=== PATIENT | male | born 1975 | race Caucasian/White ===

== ENCOUNTER 2020-06-11 05:55 | Day surgery (SDC) | payer BC, OTHER ==
[~2020-06-11] VITALS: Ht 180.3 cm; Wt 112.1 kg
[~2020-06-11 05:55] MED LIST: DULA1.5P SC; INSU100C SQ-INSULIN; INSU300I3 SC; METF1000 PO
[2020-06-11 06:38] VITALS: BP 130/90
[2020-06-11] MEDS ORDERED: LACTATED RINGERS 1,000 ML IV SCH (07:00)
[2020-06-11] MEDS ORDERED: CHLORHEXIDINE 15 ML UDC MM ONE (07:00)
[2020-06-11] MEDS ORDERED: LIDOCAINE-MPF 2% ,5ML ONE (07:30)
[2020-06-11] MEDS ORDERED: ROCURONIUM 10MG/ML,5ML ONE (07:30)
[2020-06-11] MEDS ORDERED: FENTANYL PF 250 MCG/5ML ONE (07:30)
[2020-06-11] MEDS ORDERED: MIDAZOLAM 1 MG/ML, 5ML ONE (07:30)
[2020-06-11] MEDS ORDERED: GLYCOPYRROLATE 0.2MG/1ML, 5ML ONE (07:30)
[2020-06-11] MEDS ORDERED: DEXAMETHASONE 4 MG/ML, 5ML ONE (07:30)
[2020-06-11] MEDS ORDERED: LIDOCAINE/PF 1%, 30ML ONE (07:44)
[2020-06-11] MEDS ORDERED: KETAMINE 10 MG/ML, 20ML ONE (07:44)
[2020-06-11] MEDS ORDERED: cloniDINE/PF 100 MCG/ML, 10 ML ONE (07:45)
[2020-06-11] MEDS ORDERED: PROPOFOL 10 MG/ML, 20ML ONE (07:47)
[2020-06-11] MEDS ORDERED: CEFAZOLIN 1,000 MG ONE (07:47)
[2020-06-11] MEDS ORDERED: EPINEPHRINE 1 MG/ML, 1ML INFIL ONE (08:28)
[2020-06-11] MEDS ORDERED: LIDOCAINE/PF 0.5% ,50ML INFIL ONE (08:28)
[2020-06-11] MEDS ORDERED: BUPIVACAINE 0.25% INFIL ONE (08:28)
[2020-06-11] MEDS ORDERED: VANCOMYCIN 1,000 MG IVPush ONE (09:35)
[2020-06-11] MEDS ORDERED: FENTANYL PF 100 MCG/2ML ONE ×2 (10:59→11:27)
[2020-06-11] MEDS ORDERED: MEPERIDINE/PF 25MG/0.5ML IVPush PRN (11:00)
[2020-06-11] MEDS ORDERED: LABETALOL 5MG/ML, 20ML IV PRN (11:00)
[2020-06-11] MEDS ORDERED: ONDANSETRON 2MG/ML, 2ML IVPush PRN (11:00)
[2020-06-11] MEDS ORDERED: METHOCARBAMOL 1,000 MG in DEXTROSE 5% 100 ML IV PRN (11:00)
[2020-06-11] MEDS ORDERED: LORazepam 2 MG/ML, 1ML IVPush PRN (11:00)
[2020-06-11] MEDS ORDERED: EPHEDRINE 50 MG/ML, 1ML IM PRN (11:00)
[2020-06-11] MEDS ORDERED: EPHEDRINE 50 MG/ML, 1ML IVPush PRN (11:00)
[2020-06-11] MEDS: FENTANYL PF 100 MCG/2ML IV PRN ×4 (11:00→11:44)
[2020-06-11] MEDS ORDERED: DIPHENHYDRAMINE 50 MG/ML, 1ML IVPush PRN (11:00)
[2020-06-11] MEDS ORDERED: hydrALAzine 20 MG/ML, 1ML IV PRN (11:00)
[2020-06-11] MEDS ORDERED: METOCLOPRAMIDE 5 MG/ML, 2ML IVPush PRN (11:00)
[2020-06-11] MEDS ORDERED: ALBUTEROL SULFATE 2.5 MG/3 ML NPPB PRN (11:00)
[2020-06-11] MEDS ORDERED: HALOPERIDOL 5 MG/ML IV PRN (11:00)
[2020-06-11] MEDS ORDERED: HYDROcodone/APAP 7.5-325MG/15ML UDC PO PRN (11:00)
[2020-06-11] MEDS ORDERED: DIAZEPAM 5 MG/ML, 2ML IVPush PRN (11:00)
[2020-06-11] MEDS ORDERED: MIDAZOLAM 1 MG/ML, 2ML IV PRN (11:00)
[2020-06-11] MEDS ORDERED: HYDROmorphone 1 MG/ML, 1ML INJ IVPush PRN (11:00)
[2020-06-11] MEDS ORDERED: ACETAMINOPHEN 325 MG TABLET PO PRN (11:00)
[2020-06-11] MEDS ORDERED: OXYcodone 5 MG/5 ML ORAL.SOL UDC ONE (11:27)
[2020-06-11] MEDS: OXYcodone 5 MG/5 ML ORAL.SOL UDC PO PRN ×2 (11:32→15:31)
[2020-06-11] MEDS ORDERED: HYDROmorphone 1 MG/ML, 1ML INJ ONE (11:50)
[2020-06-11] MEDS ORDERED: DIAZEPAM 5 MG TABLET PO PRN (14:00)
== END 2020-06-11 15:45 | disposition home or self-care (01) ==
LOC: OUT 05:55
PROVIDERS: ATTEND Orthopaedic Surgery Orthopaedic Surgery of the Spine
DX: M48.061 Spinal stenosis, lumbar region without neurogenic claudication (principal); M48.07 Spinal stenosis, lumbosacral region; E11.9 Type 2 diabetes mellitus without complications; E66.9 Obesity, unspecified; Z79.84 Long term (current) use of oral hypoglycemic drugs; Z79.899 Other long term (current) drug therapy
CPT/HCPCS: 63047; 63048; 72100; 82962; J0171; J0690; J0735; J1100; J1170; J2001; J2250; J2704; J2800; J3010; J3370; J7120